=== PATIENT | female | born 1985 | race Caucasian/White ===

== ENCOUNTER → 2019-06-14 11:57 | Outpatient (CLI) | payer SELFPAY | PROVIDERS: Visit Provider Physician Assistant | DX: L03.90 Cellulitis, unspecified (principal) | CPT/HCPCS: 87070; 87077; 87186; 87205 ==

== ENCOUNTER 2019-10-19 15:37 | Emergency (ER) | payer SELFPAY ==
[2019-10-19 15:42] VITALS: BP 103/66; PULSE 127; RESP 22; TEMP 37.7; O2SAT 99
--- NOTE | 2019-10-19 15:49 | ED_ITS ---
HPI - Fever <HOSSEIN Adams - Last Filed: 10/19/19 20:47> General Chief Complaint: Fever Stated Complaint: fever, lt sided kidney pain, N/V Time Seen by Provider: 10/19/19 15:39 Source: patient Mode of arrival: Ambulatory History of Present Illness HPI Narrative: 34-year-old female presenting to the emergency department complaining of left flank pain for the past 6 days. She states she initially had burning with urination, dark urine, and blood in her urine. The blood disappeared in her urine but she continued to have dark urine. She noticed she started to develop left flank pain yesterday which has increased today. She also reported a few episodes of nausea and vomiting today. Patient states she has been taking 400 mg of ibuprofen every 6 hours sent last week to help with burning and pain. She denies any history of pyelonephritis, renal calculi, or UTIs. Patient denies any abdominal pain, chest pain, cough, dizziness, shortness of breath, sore throat, rhinorrhea, diarrhea, or any other concerns. She states she has a history of dermatitis, denies any drug allergies. Related Data Home Medications Medication Instructions Recorded Confirmed levothyroxine 125 mcg PO DAILY 10/19/19 10/19/19 Previous Rx's Medication Instructions Recorded cephalexin 500 mg PO BID #14 cap 10/19/19 ondansetron 4 mg PO Q8H #20 tab 10/19/19 Allergies Allergy/AdvReac Type Severity Reaction Status Date / Time No Known Drug Allergies Allergy Verified 10/19/19 15:47 Review of Systems <HOSSEIN Adams - Last Filed: 10/19/19 20:47> Review of Systems Narrative: REVIEW OF SYSTEMS: GENERAL: Reports chills, see HPI. HENT: No head trauma. CARDIOVASCULAR: No chest pain. RESPIRATORY: No shortness of breath or cough. GASTROINTESTINAL: No nausea, vomiting, or abdominal pain, see HPI. GENITOURINARY: Reports dysuria and flank pain. MUSCULOSKELETAL: No trauma. INTEGUMENTARY: No rash, lesions, or pruritus. NEURO: No memory loss or confusion. Patient History <HOSSEIN Adams - Last Filed: 10/19/19 20:47> Medical History Dermatitis (Acute) Social History Smoking Status: Never smoker Smoking Status: Never smoker Exam <HOSSEIN Adams - Last Filed: 10/19/19 20:47> Initial Vital Signs Initial Vital Signs: Vital Signs Temperature 99.8 F H 10/19/19 15:42 Pulse Rate 127 H 10/19/19 15:42 Respiratory Rate 22 10/19/19 15:42 Blood Pressure 103/66 10/19/19 15:42 Pulse Oximetry 99 10/19/19 15:42 PHYSICAL EXAMINATION: GENERAL: Well groomed, alert, and cooperative. Answers questions promptly and appropriately. Vital signs noted. HENT: Normocephalic, atraumatic. Hearing intact. Oropharynx moist. EYES: Sclera white. No periorbital swelling. Tracks around the room. CARDIOVASCULAR: Tachycardia noted, S1-S2 sounds heard without murmur. RESPIRATORY: Normal respiratory rate, trachea midline, airway patent. No stridor, nasal flaring or accessory muscle use. Lung sounds clear throughout all bowman, no wheezes, crackles, rhonchi. No cough appreciated. GASTROINTESTINAL: Bowel sounds normoactive. Abdomen is soft and non-tender. No organomegaly, no palpable masses. GENITALURINARY: Left CVA tenderness. MUSCULOSKELETAL: Normal gait and coordination. Equal tone and mass bilaterally. SKIN: Warm, dry, soft, appropriate color for ethnicity. No lesions, rashes, or wounds to visulized areas. NEURO: Alert and Oriented X 3. Good coordination. No ataxia, or sensory deficits, or cognitive issues. PSYCH: Appropriate affect and mood. <Torey Dillard DO - Last Filed: 10/20/19 07:04> Initial Vital Signs Initial Vital Signs: Vital Signs Temperature 99.8 F H 10/19/19 15:42 Pulse Rate 127 H 10/19/19 15:42 Respiratory Rate 22 10/19/19 15:42 Blood Pressure 103/66 10/19/19 15:42 Pulse Oximetry 99 10/19/19 15:42 Course <HOSSEIN Adams - Last Filed: 10/19/19 20:47> Course Course Narrative: Sepsis orders were initiated upon triage. 30mg/kg of fluids given. Patient was also given Toradol, Zofran, and ceftriaxone IV. Patient reported significant improvement after administration of fluids and medications. She was able to eat and drink without any nausea or vomiting. I extensively explained to patient importance of continue to take her antibiotics. She states she felt better and like to return home. Orders Ordered: Discontinued Medications Acetaminophen (Tylenol) 975 mg PO NOW ONE Stop: 10/19/19 17:39 Last Admin: 10/19/19 17:45 Dose: 975 mg Documented by: CLARKE Sodium Chloride (Normal Saline 0.9%) 1,890 mls @ 630 mls/hr 30 ml/kg infuse over 3 hr (1890 ml) IV NOW ONE Stop: 10/19/19 18:48 Last Infusion: 10/19/19 18:42 Dose: 0 mls/hr Documented by: Admin: 10/19/19 16:03 Dose: 630 mls/hr Documented by: CLARKE Ceftriaxone Sodium 1,000 mg/ (Dextrose) 50 mls @ 100 mls/hr IV NOW ONE Stop: 10/19/19 16:06 Last Infusion: 10/19/19 17:23 Dose: 0 mls/hr Documented by: Admin: 10/19/19 16:47 Dose: 100 mls/hr Documented by: CLARKE Ketorolac Tromethamine (Toradol) 30 mg IV NOW ONE Stop: 10/19/19 16:06 Last Admin: 10/19/19 16:12 Dose: 30 mg Documented by: CLARKE Ondansetron HCl (Zofran) 4 mg IV NOW ONE Stop: 10/19/19 16:06 Last Admin: 10/19/19 16:12 Dose: 4 mg Documented by: CLARKE Consultations Consultation #1: Patient staffed with Dr. Dillard Vital Signs Vital signs: Vital Signs - 8 hr 10/19/19 15:42 10/19/19 16:52 10/19/19 17:48 Temperature 99.8 F H 98.9 F Pulse Rate 127 H 102 H Respiratory Rate 22 15 Blood Pressure 103/66 Blood Pressure [Right Arm] 115/68 Pulse Oximetry 99 98 10/19/19 18:15 10/19/19 18:56 Temperature Pulse Rate 99 H 99 H Respiratory Rate 18 Blood Pressure Blood Pressure [Right Arm] 90/50 L 106/56 L Pulse Oximetry 99 99 <Torey Dillard DO - Last Filed: 10/20/19 07:04> Orders Ordered: Discontinued Medications Acetaminophen (Tylenol) 975 mg PO NOW ONE Stop: 10/19/19 17:39 Last Admin: 10/19/19 17:45 Dose: 975 mg Documented by: CLARKE Sodium Chloride (Normal Saline 0.9%) 1,890 mls @ 630 mls/hr 30 ml/kg infuse over 3 hr (1890 ml) IV NOW ONE Stop: 10/19/19 18:48 Last Infusion: 10/19/19 18:42 Dose: 0 mls/hr Documented by: Admin: 10/19/19 16:03 Dose: 630 mls/hr Documented by: CLARKE Ceftriaxone Sodium 1,000 mg/ (Dextrose) 50 mls @ 100 mls/hr IV NOW ONE Stop: 10/19/19 16:06 Last Infusion: 10/19/19 17:23 Dose: 0 mls/hr Documented by: Admin: 10/19/19 16:47 Dose: 100 mls/hr Documented by: CLARKE Ketorolac Tromethamine (Toradol) 30 mg IV NOW ONE Stop: 10/19/19 16:06 Last Admin: 10/19/19 16:12 Dose: 30 mg Documented by: CLARKE Ondansetron HCl (Zofran) 4 mg IV NOW ONE Stop: 10/19/19 16:06 Last Admin: 10/19/19 16:12 Dose: 4 mg Documented by: CLARKE Vital Signs Vital signs: Vital Signs - 8 hr 10/19/19 15:42 10/19/19 16:52 10/19/19 17:48 Temperature 99.8 F H 98.9 F Pulse Rate 127 H 102 H Respiratory Rate 22 15 Blood Pressure 103/66 Blood Pressure [Right Arm] 115/68 Pulse Oximetry 99 98 10/19/19 18:15 10/19/19 18:56 Temperature Pulse Rate 99 H 99 H Respiratory Rate 18 Blood Pressure Blood Pressure [Right Arm] 90/50 L 106/56 L Pulse Oximetry 99 99 MDM - Fever <HOSSEIN Adams - Last Filed: 10/19/19 20:47> Medical Records Attestation: I reviewed the patient's medical records. Lab Data Attestation: I reviewed the patient's lab results. Result diagrams: 10/19/19 16:03 10/19/19 16:03 Labs: Lab Results 10/19/19 10/19/19 10/19/19 Range/Units 16:03 16:03 16:03 WBC 13.0 H (4.5-11.0) X10^3/uL RBC 4.35 (4.0-5.2) X10^6/uL Hgb 13.6 (12.0-16.0) g/dL Hct 39.0 (36-46) % MCV 89.6 (80-100) fL MCH 31.2 (26-34) PG MCHC 34.8 (30-36) % RDW 12.8 (11.6-14.8) % Plt Count 194 (150-400) X10^3/uL Neut % (Auto) 85.1 H (50-75) % Lymph % (Auto) 4.6 L (25-40) % [place] % (Auto) 9.9 (3-14) % Eos % (Auto) 0.0 L (2-4) % Baso % (Auto) 0.4 (0-2) % Neut # (Auto) 91615 H (4839-3196) /uL Lymph # (Auto) 600 L (4879-0276) /uL [place] # (Auto) 1300 H (0-900) /uL Eos # (Auto) 0 (0-450) /uL Baso # (Auto) 100 (0-100) /uL Sodium 134 L (137-145) mmol/L Potassium 3.5 (3.4-5.1) mmol/L Chloride 100 (98-107) mmol/L Carbon Dioxide 23 (22-32) mmol/L BUN 8 (7-17) mg/dL Creatinine 0.90 (0.52-1.04) mg/dL Estimated GFR > 60.0 (>60) mL/min BUN/Creatinine Ratio 8.9 (6-22) Glucose 143 H (70-100) mg/dL Lactate (0.7-2.1) mmol/L Calcium 9.4 (8.4-10.2) mg/dL Total Bilirubin 0.7 (0.2-1.3) mg/dL AST 18 (14-36) IU/L ALT 11 (<35) IU/L Alkaline Phosphatase 68 (38-126) U/L Total Protein 7.8 (6.3-8.2) g/dL Albumin 4.3 (3.5-5.0) g/dL Globulin 3.5 (1.7-4.1) g/dL Albumin/Globulin Ratio 1.2 (1.0-2.8) Procalcitonin 0.71 H (<0.5) ng/mL Urine RBC (0-5/HPF) Urine WBC (0-5/HPF) Ur Squamous Epith Cells (0-5/HPF) Urine Bacteria (None) Ur Culture Indicated? 10/19/19 10/19/19 Range/Units 16:03 16:47 WBC (4.5-11.0) X10^3/uL RBC (4.0-5.2) X10^6/uL Hgb (12.0-16.0) g/dL Hct (36-46) % MCV (80-100) fL MCH (26-34) PG MCHC (30-36) % RDW (11.6-14.8) % Plt Count (150-400) X10^3/uL Neut % (Auto) (50-75) % Lymph % (Auto) (25-40) % [place] % (Auto) (3-14) % Eos % (Auto) (2-4) % Baso % (Auto) (0-2) % Neut # (Auto) (6608-9056) /uL Lymph # (Auto) (1506-1350) /uL [place] # (Auto) (0-900) /uL Eos # (Auto) (0-450) /uL Baso # (Auto) (0-100) /uL Sodium (137-145) mmol/L Potassium (3.4-5.1) mmol/L Chloride (98-107) mmol/L Carbon Dioxide (22-32) mmol/L BUN (7-17) mg/dL Creatinine (0.52-1.04) mg/dL Estimated GFR (>60) mL/min BUN/Creatinine Ratio (6-22) Glucose (70-100) mg/dL Lactate 1.6 (0.7-2.1) mmol/L Calcium (8.4-10.2) mg/dL Total Bilirubin (0.2-1.3) mg/dL AST (14-36) IU/L ALT (<35) IU/L Alkaline Phosphatase (38-126) U/L Total Protein (6.3-8.2) g/dL Albumin (3.5-5.0) g/dL Globulin (1.7-4.1) g/dL Albumin/Globulin Ratio (1.0-2.8) Procalcitonin (<0.5) ng/mL Urine RBC 1-5/hpf (0-5/HPF) Urine WBC >100/hpf H (0-5/HPF) Ur Squamous Epith Cells 10-30 /hpf H (0-5/HPF) Urine Bacteria Many (>30) H (None) Ur Culture Indicated? Cult not indicated Point of Care Testing Test Results Negative Urine Dip Bedside Urine Glucose Negative Bedside Urine Bilirubin - Negative Bedside Urine Ketone - Negative Urine Specific King 1.015 Bedside Urine Occult Blood +++ Bedside Urine pH 6.0 Bedside Urine Protein ++ 100 Bedside Urine Urobilinogen - Negative Bedside Urine Nitrite + Positive Bedside Urine Leukocytes +++ 500 Esterase MDM Narrative Medical decision making narrative: This is a 34-year-old female presenting to the emergency department describing historical symptoms of which was most likely a UTI turning in to left flank pain with fever, nausea, and vomiting. Patient most likely has pyelonephritis due to tachycardia, nausea, vomiting, CVA tenderness, white count with a left shift, and urine that is positive for bacteria and leukocytes. Patient was treated with IV fluids at 30 milligrams/kilogram as she meet sepsis protocol, she was treated with Toradol to help with fever and pain, Zofran for nausea, and ceftriaxone to initially treat infection. Patient's vital signs significantly improved. Heart rate was reduced from the 120 to 99. Blood pressure remained stable, patient was able to ambulate without significant pain and appeared well upon discharge. Patient was able to take oral food and fluids without vomiting, she understood the importance of taking her medication, and her symptoms were improving which makes her a candidate for outpatient treatment. Less likely renal calculi due to lack of history of kidney stones, mild to moderate CVA tenderness, and reports of which appears to be dysuria and blood in her urine before her flank pain occurred. Less likely acute abdominal etiology due to benign abdominal exam. Patient was given very strict return precautions which she verbalized understanding. She was encouraged to return for any new or worsening symptoms such as high fevers, vomiting, worsening pain, or any other concerns. She was encouraged to follow up with her primary care provider in the next 2 weeks for further evaluation. <Torey Dillard DO - Last Filed: 10/20/19 07:04> Lab Data Labs: Lab Results 10/19/19 10/19/19 10/19/19 Range/Units 16:03 16:03 16:03 WBC 13.0 H (4.5-11.0) X10^3/uL RBC 4.35 (4.0-5.2) X10^6/uL Hgb 13.6 (12.0-16.0) g/dL Hct 39.0 (36-46) % MCV 89.6 (80-100) fL MCH 31.2 (26-34) PG MCHC 34.8 (30-36) % RDW 12.8 (11.6-14.8) % Plt Count 194 (150-400) X10^3/uL Neut % (Auto) 85.1 H (50-75) % Lymph % (Auto) 4.6 L (25-40) % [place] % (Auto) 9.9 (3-14) % Eos % (Auto) 0.0 L (2-4) % Baso % (Auto) 0.4 (0-2) % Neut # (Auto) 91586 H (3393-5343) /uL Lymph # (Auto) 600 L (4722-4376) /uL [place] # (Auto) 1300 H (0-900) /uL Eos # (Auto) 0 (0-450) /uL Baso # (Auto) 100 (0-100) /uL Sodium 134 L (137-145) mmol/L Potassium 3.5 (3.4-5.1) mmol/L Chloride 100 (98-107) mmol/L Carbon Dioxide 23 (22-32) mmol/L BUN 8 (7-17) mg/dL Creatinine 0.90 (0.52-1.04) mg/dL Estimated GFR > 60.0 (>60) mL/min BUN/Creatinine Ratio 8.9 (6-22) Glucose 143 H (70-100) mg/dL Lactate (0.7-2.1) mmol/L Calcium 9.4 (8.4-10.2) mg/dL Total Bilirubin 0.7 (0.2-1.3) mg/dL AST 18 (14-36) IU/L ALT 11 (<35) IU/L Alkaline Phosphatase 68 (38-126) U/L Total Protein 7.8 (6.3-8.2) g/dL Albumin 4.3 (3.5-5.0) g/dL Globulin 3.5 (1.7-4.1) g/dL Albumin/Globulin Ratio 1.2 (1.0-2.8) Procalcitonin 0.71 H (<0.5) ng/mL Urine RBC (0-5/HPF) Urine WBC (0-5/HPF) Ur Squamous Epith Cells (0-5/HPF) Urine Bacteria (None) Ur Culture Indicated? 10/19/19 10/19/19 Range/Units 16:03 16:47 WBC (4.5-11.0) X10^3/uL RBC (4.0-5.2) X10^6/uL Hgb (12.0-16.0) g/dL Hct (36-46) % MCV (80-100) fL MCH (26-34) PG MCHC (30-36) % RDW (11.6-14.8) % Plt Count (150-400) X10^3/uL Neut % (Auto) (50-75) % Lymph % (Auto) (25-40) % [place] % (Auto) (3-14) % Eos % (Auto) (2-4) % Baso % (Auto) (0-2) % Neut # (Auto) (7069-5854) /uL Lymph # (Auto) (0951-9950) /uL [place] # (Auto) (0-900) /uL Eos # (Auto) (0-450) /uL Baso # (Auto) (0-100) /uL Sodium (137-145) mmol/L Potassium (3.4-5.1) mmol/L Chloride (98-107) mmol/L Carbon Dioxide (22-32) mmol/L BUN (7-17) mg/dL Creatinine (0.52-1.04) mg/dL Estimated GFR (>60) mL/min BUN/Creatinine Ratio (6-22) Glucose (70-100) mg/dL Lactate 1.6 (0.7-2.1) mmol/L Calcium (8.4-10.2) mg/dL Total Bilirubin (0.2-1.3) mg/dL AST (14-36) IU/L ALT (<35) IU/L Alkaline Phosphatase (38-126) U/L Total Protein (6.3-8.2) g/dL Albumin (3.5-5.0) g/dL Globulin (1.7-4.1) g/dL Albumin/Globulin Ratio (1.0-2.8) Procalcitonin (<0.5) ng/mL Urine RBC 1-5/hpf (0-5/HPF) Urine WBC >100/hpf H (0-5/HPF) Ur Squamous Epith Cells 10-30 /hpf H (0-5/HPF) Urine Bacteria Many (>30) H (None) Ur Culture Indicated? Cult not indicated Point of Care Testing Test Results Negative Urine Dip Bedside Urine Glucose Negative Bedside Urine Bilirubin - Negative Bedside Urine Ketone - Negative Urine Specific [place] 1.015 Bedside Urine Occult Blood +++ Bedside Urine pH 6.0 Bedside Urine Protein ++ 100 Bedside Urine Urobilinogen - Negative Bedside Urine Nitrite + Positive Bedside Urine Leukocytes +++ 500 Esterase Discharge Plan Departure Patient Disposition: Home Clinical Impression: Pyelonephritis Discharge Date/Time: 10/19/19 19:08 Instructions: DI for Urinary Tract Infection (UTI) Activity Restrictions/Additional Instructions: Thank you for entrusting me with your care today. As discussed, you appear to have an infection in your kidney. I prescribed you antibiotics, please take the full course until all the pills are gone. I have also given you a medication to help with nausea, take this if you have nausea and vomiting. Please drink a lot of fluids. Occasionally, medication will need to be changed. If this happens, you will be called in 2 days and the medication will be switched, this is based on your urine culture that takes 2 days to process. Follow up with your primary care provider in 1-2 weeks for further evaluation. Return to the emergency department for high fevers, fast heart rate, uncontrollable vomiting, worsening symptoms, worsening pain, or any other concerns. Prescriptions: New cephalexin 500 mg capsule 500 mg PO BID Qty: 14 RF: 0 ondansetron 4 mg tablet,disintegrating 4 mg PO Q8H Qty: 20 RF: 0 No Action levothyroxine 125 mcg Tablet 125 mcg PO DAILY RF: 0 <Torey Dillard, DO - Last Filed: 10/20/19 07:04> Sign Out Provider Sign Out Attestation: Dr Dillard Co-Sign Statement: I was available for consultation during this patient's emergency department visit. This chart is signed by myself for administrative purposes only. I did not have direct contact with this patient during this visit. They were seen independently by the APC.
[2019-10-19] MEDS: SODIUM CHLORIDE 0.9% 1,890 ML 630 ML IV (16:03)
[2019-10-19 16:08] LABS: Add Manual Diff / Slide Review NO; Basophils Absolute Auto 100 /uL (0-100); Basophils Percent Auto 0.4 % (0-2); Eosinophils Absolute Auto 0 /uL (0-450); Hemoglobin 13.6 g/dL (12.0-16.0); Lymphocytes Absolute Auto 600 /uL (1100-4500); Lymphocytes Percent Auto 4.6 % (25-40); Mean Corpuscular HGB Conc 34.8 % (30-36); Mean Corpuscular Hemoglobin 31.2 PG (26-34); Mean Corpuscular Volume 89.6 fL (80-100); Monocytes Absolute Auto 1300 /uL (0-900); Monocytes Percent Auto 9.9 % (3-14); Neutrophils Absolute Auto 11100 /uL (1500-7000); Neutrophils Percent Auto 85.1 % (50-75); Platelet Count 194 X10^3/uL (150-400); Red Blood Cell Count 4.35 X10^6/uL (4.0-5.2); Red Cell Distribution Width 12.8 % (11.6-14.8)
[2019-10-19] MEDS: ONDANSETRON 4 MG/2 ML INJ IV (16:12)
[2019-10-19] MEDS: KETOROLAC 60 MG/2 ML VIAL 30 MG IV (16:12)
[2019-10-19 16:20] LABS: Alanine Aminotransferase 11 IU/L (<35); Albumin 4.3 g/dL (3.5-5.0); Albumin Globulin Ratio 1.2 (1.0-2.8); Alkaline Phosphatase 68 U/L (38-126); Aspartate Aminotransferase 18 IU/L (14-36); BUN Creatinine Ratio 8.9 (6-22); Bilirubin Total 0.7 mg/dL (0.2-1.3); Blood Urea Nitrogen 8 mg/dL (7-17); Calcium 9.4 mg/dL (8.4-10.2); Carbon Dioxide 23 mmol/L (22-32); Chloride 100 mmol/L (98-107); Estimated Glomerular Filt Rate > 60.0 mL/min (>60); Globulin 3.5 g/dL (1.7-4.1); Glucose 143 mg/dL (70-100); HEMOLYSIS < 15 (0-50); Potassium 3.5 mmol/L (3.4-5.1); Sodium 134 mmol/L (137-145); Total Protein 7.8 g/dL (6.3-8.2)
[2019-10-19 16:21] LABS: Lactate (Lactic Acid) 1.6 mmol/L (0.7-2.1)
[2019-10-19] MEDS: cefTRIAXone 1,000 MG in DEXTROSE 5 % IN WATER 50 ML 100 ML IV (16:47)
[2019-10-19 16:48] LABS: Procalcitonin 0.71 ng/mL (<0.5)
[2019-10-19 16:52] VITALS: BP 115/68; PULSE 102; RESP 15; O2SAT 98
[2019-10-19] MEDS: ACETAMINOPHEN 325 MG TABLET 975 MG PO (17:45)
[2019-10-19 17:48] VITALS: TEMP 37.2
[2019-10-19 18:04] LABS: Bacteria Urine Many (>30); RBC Urine 1-5/HPF (0-5/HPF); Squamous Epithelial Cell Urine 10-30 /HPF (0-5/HPF); WBC Urine >100/HPF (0-5/HPF)
[2019-10-19 18:05] LABS: Culture Indicated Urine Cult Not Indicated
[2019-10-19 18:15] VITALS: BP 90/50; PULSE 99; RESP 18; O2SAT 99
[2019-10-19 18:56] VITALS: BP 106/56; PULSE 99; O2SAT 99
[2019-10-20 07:39] LABS: Acinetobacter baumannii Not Detected (Not Detect); Enterobacteriaceae species Detected (Not Detect); Enterococcus species Not Detected (Not Detect); KPC (carbapenem-resist gene) Not Detected (Not Detect); Listeria monocytogenes Not Detected (Not Detect); Staphylococcus species Not Detected (Not Detect); Streptococcus agalactiae (Gr B Not Detected (Not Detect); Streptococcus pneumonia Not Detected (Not Detect); Streptococcus pyogenes (Gr A) Not Detected (Not Detect); Streptococcus species Not Detected (Not Detect)
[2019-10-20 07:40] LABS: Candida albicans Not Detected (Not Detect); Candida glabrata Not Detected (Not Detect); Candida krusei Not Detected (Not Detect); Candida parapsilosis Not Detected (Not Detect); Candida tropicalis Not Detected (Not Detect); E. coli Detected (Not Detect); Enterobacter cloacae complex Not Detected (Not Detect); Haemophilus influenzae Not Detected (Not Detect); Neisseria meningitidis Not Detected (Not Detect); Proteus species Not Detected (Not Detect); Pseudomonas aeruginosa Not Detected (Not Detect); Serratia marcescens Not Detected (Not Detect)
== END 2019-10-19 19:08 | disposition home or self-care (01) ==
PROVIDERS: Emergency Provider Nurse Practitioner
DX: N12 Tubulo-interstitial nephritis, not specified as acute or chronic (principal)
CPT/HCPCS: 36415; 80053; 81003; 81015; 81025; 83605; 84145; 85025; 87040; 87150; 87186; 87205; 96361; 96365; 96375; 99284; J0696; J1885; J2405